=== PATIENT | male | born 1955 | race Caucasian/White ===

== ENCOUNTER 2022-08-22 15:02 | Inpatient (IN) ==
[~2022-08-22 15:02] MED LIST: ACETAMINOPHEN 325 MG TABLET PO PRN; ALUMINUM/MAGNES/SIMETH MAX STR 30 ML UDCUP PO PRN; DOCUSATE SODIUM 100 MG CAPSULE PO PRN; HYDROmorphone 1 MG/1 ML SYRINGE ONE; MAGNESIUM SULF RIDER 2 GM/50 ML PREMIX IV PRN; MAGNESIUM SULF RIDER 4 GM/100 ML PREMIX IV PRN; MIDAZOLAM 2 MG/2 ML VIAL ONE; MORPHINE 2 MG/1 ML SYRINGE IV PRN; NICOTINE 21 MG/24 HR PATCH TRANSDERM PRN; ONDANSETRON 4 MG/2 ML VIAL IV PRN; POTASSIUM CHLORIDE 20 MEQ TABLET PO PRN; PROMETHAZINE 25 MG TABLET PO PRN; ZALEPLON 5 MG CAPSULE PO PRN; diphenhydrAMINE CAP 25 MG CAPSULE PO PRN; guaiFENesin/DM ER 600-30 MG TABLET PO PRN; hydrALAZINE 20 MG/1 ML VIAL IV PRN
[2022-08-22] MEDS ORDERED: NITROGLYCERIN DRIP 50 MG/250 ML BOTTLE IV ONE (15:16)
[2022-08-22] MEDS ORDERED: HEPARIN 5,000 UNIT/1 ML VIAL ONE (15:19)
[2022-08-22] MEDS ORDERED: TIROFIBAN 5,000 MCG/100 ML PREMIX IV ONE (15:20)
[2022-08-22] MEDS ORDERED: LABETALOL 20 MG/4 ML SYRINGE IV ONE (15:44)
[2022-08-22] MEDS ORDERED: HYDROmorphone 1 MG/1 ML SYRINGE ONE (15:46)
[2022-08-22] MEDS ORDERED: NITROGLYCERIN SL 0.4 MG TABLET SL PRN (16:31)
[2022-08-22 17:20] LABS: Basophils % 0.3 % (0.0-0.8); Eosinophils % 0.2 % (0.00-10.9); Hematocrit 47.6 VOL% (42.0-52.0); Hemoglobin 15.4 GM/DL (14.0-18.0); Immature Granulocytes % 0.5 %; Immature Granulocytes Absolute 0.06 #; Lymphocytes # 1.5 10*3/uL (1.4-4.0); Lymphocytes % 10.9 % (21.2-54.2); Mean Corpuscular HGB Conc 32.4 GM/DL (32-36); Mean Corpuscular Volume 86.5 FL (87-102); Mean Platelet Volume 9.7 FL (9.6-12.0); Monocytes # 0.5 10*3/uL (0.11-0.8); Monocytes % 3.5 % (1.7-12.7); Neutrophils % 84.6 % (38.7-73.9); Platelet Count 335 T/CUMM (130-400); Red Cell Distribution Width 14.1 % (9.3-17.3); White Blood Count 13.3 T/CUMM (4-12)
[2022-08-22] MEDS: carvediloL 6.25 MG TABLET PO SCH (17:35)
[2022-08-22 17:38] LABS: Alanine Aminotransferase 105 U/L (16-61); Albumin 3.1 G/DL (3.4-5.0); Alkaline Phosphatase 96 U/L (45-117); Aspartate Amino Transferase 842 U/L (0-37); Bilirubin,Total < 0.39 MG/DL (0.20-1.00); Blood Urea Nitrogen 15 MG/DL (7-18); Calcium 8.9 MG/DL (8.5-10.1); Carbon Dioxide 25 MMOL/L (21-32); Chloride 109 MMOL/L (98-107); Glucose 142 MG/DL (74-106); Osmolality,Calculated 277.7 MOS/KG (273-304); Potassium 4.5 MMOL/L (3.5-5.1); Sodium 138 MMOL/L (136-145); Total Protein 7.3 G/DL (6.4-8.2)
[2022-08-22 18:21] LABS: CKMB % 12.89 %
[2022-08-22 18:23] LABS: High Sensitive Troponin I* > 125000 ng/L (0-78)
[2022-08-22] MEDS: TICAGRELOR 90 MG TABLET PO SCH (20:22)
[2022-08-22] MEDS: ROSUVASTATIN 20 MG TABLET PO SCH (20:22)
[2022-08-22] MEDS ORDERED: METOPROLOL TARTRATE 25 MG TABLET PO SCH (21:00)
[2022-08-22 21:04] LABS: CKMB % 15.21 %
[2022-08-22 21:12] LABS: High Sensitive Troponin I* > 125000 ng/L (0-78)
[2022-08-23 00:07] LABS: CKMB % 16.62 %; High Sensitive Troponin I* > 125000 ng/L (0-78)
[2022-08-23 05:01] LABS: Basophils % 0.2 % (0.0-0.8); Eosinophils # 0.3 10*3/uL (0.0-0.87); Eosinophils % 1.9 % (0.00-10.9); Hematocrit 45.3 VOL% (42.0-52.0); Hemoglobin 15.2 GM/DL (14.0-18.0); Immature Granulocytes % 0.4 %; Immature Granulocytes Absolute 0.05 #; Lymphocytes # 1.7 10*3/uL (1.4-4.0); Lymphocytes % 12.3 % (21.2-54.2); Mean Corpuscular HGB Conc 33.6 GM/DL (32-36); Mean Corpuscular Volume 86.3 FL (87-102); Monocytes # 0.7 10*3/uL (0.11-0.8); Monocytes % 5.3 % (1.7-12.7); Neutrophils % 79.9 % (38.7-73.9); Platelet Count 335 T/CUMM (130-400); Red Blood Count 5.25 MC/CUMM (3.8-5.5); Red Cell Distribution Width 14.2 % (9.3-17.3); White Blood Count 13.9 T/CUMM (4-12)
[2022-08-23 05:17] LABS: Albumin 2.9 G/DL (3.4-5.0); Bilirubin,Total 0.5 MG/DL (0.20-1.00); Osmolality,Calculated 278.7 MOS/KG (273-304); Potassium 3.8 MMOL/L (3.5-5.1); Risk Ratio 5.47; Thyroid Stimulating Hormone 2.36 uIU/ml (0.358-3.74); Total Protein 6.9 G/DL (6.4-8.2)
[2022-08-23 08:17] LABS: High Sensitive Troponin I* > 125000 ng/L (0-78)
[2022-08-23] MEDS ORDERED: amLODIPine 10 MG TABLET PO SCH (09:00)
[2022-08-23] MEDS: carvediloL 6.25 MG TABLET PO SCH ×2 (09:45→17:53)
[2022-08-23] MEDS: TICAGRELOR 90 MG TABLET PO SCH ×2 (09:45→20:59)
[2022-08-23] MEDS: PANTOPRAZOLE 40 MG TABLET PO SCH (09:45)
[2022-08-23] MEDS: ASPIRIN EC 81 MG TABLET PO SCH (09:45)
[2022-08-23] MEDS: SACUBITRIL/VALSARTAN 49-51 MG TABLET PO SCH (20:59)
[2022-08-23] MEDS: ROSUVASTATIN 20 MG TABLET PO SCH (21:00)
[2022-08-24 06:48] LABS: Basophils % 0.2 % (0.0-0.8); Eosinophils # 0.5 10*3/uL (0.0-0.87); Eosinophils % 4.3 % (0.00-10.9); Hematocrit 46.2 VOL% (42.0-52.0); Hemoglobin 14.9 GM/DL (14.0-18.0); Immature Granulocytes % 0.4 %; Immature Granulocytes Absolute 0.05 #; Lymphocytes # 1.8 10*3/uL (1.4-4.0); Lymphocytes % 14.3 % (21.2-54.2); Mean Corpuscular HGB Conc 32.3 GM/DL (32-36); Mean Corpuscular Volume 86.2 FL (87-102); Monocytes # 0.8 10*3/uL (0.11-0.8); Monocytes % 6.4 % (1.7-12.7); Neutrophils % 74.4 % (38.7-73.9); Platelet Count 282 T/CUMM (130-400); Red Blood Count 5.36 MC/CUMM (3.8-5.5); Red Cell Distribution Width 14.3 % (9.3-17.3); White Blood Count 12.5 T/CUMM (4-12)
[2022-08-24 07:19] LABS: Bilirubin,Total 0.5 MG/DL (0.20-1.00); Calcium 8.9 MG/DL (8.5-10.1); Osmolality,Calculated 277.7 MOS/KG (273-304); Potassium 3.7 MMOL/L (3.5-5.1); Total Protein 7.1 G/DL (6.4-8.2)
[2022-08-24 07:33] LABS: CKMB % 5.5 %; High Sensitive Troponin I* 71926.4 ng/L (0-78)
[2022-08-24] MEDS: SACUBITRIL/VALSARTAN 49-51 MG TABLET PO SCH (08:27)
[2022-08-24] MEDS: carvediloL 6.25 MG TABLET PO SCH (08:27)
[2022-08-24] MEDS: PANTOPRAZOLE 40 MG TABLET PO SCH (08:27)
[2022-08-24] MEDS: ASPIRIN EC 81 MG TABLET PO SCH (08:28)
[2022-08-24] MEDS: TICAGRELOR 90 MG TABLET PO SCH (08:28)
[2022-08-24 12:02] VITALS: BP 109/92
== END 2022-08-24 16:28 | disposition home or self-care (01) | DRG 247 ==
LOC: N.CVR → N.ICU 15:51 → N.TELEN 08-23 17:42
PROVIDERS: ADMIT Internal Medicine Cardiovascular Disease; ATTEND Internal Medicine Cardiovascular Disease

== ENCOUNTER 2022-11-03 20:01 | Inpatient (IN) ==
[2022-11-03] MEDS ORDERED: DILTIAZEM 100 MG VIAL.ADD IV ONE ×2 (20:19→20:28)
[2022-11-03] MEDS ORDERED: ASPIRIN 325 MG TABLET ONE (20:27)
[2022-11-03] MEDS ORDERED: ASPIRIN CHEW 81 MG TABLET PO STA (20:27)
[2022-11-03] MEDS ORDERED: DILTIAZEM INJ 100 MG in SODIUM CHLORIDE 0.9% 100 ML IV SCH (20:30)
[2022-11-03] MEDS ORDERED: HYDROmorphone 1 MG/1 ML SYRINGE ONE (20:34)
[2022-11-03] MEDS ORDERED: MIDAZOLAM 2 MG/2 ML VIAL ONE (20:34)
[2022-11-03] MEDS ORDERED: HEPARIN/NACL 0.9% 2 UNITS/ML 2,000 UNIT/1,000 ML BAG IV ONE (20:34)
[2022-11-03 20:35] LABS: Basophils % 0.1 % (0.0-0.8); Eosinophils # 0.8 10*3/uL (0.0-0.87); Eosinophils % 6.3 % (0.00-10.9); Hemoglobin 14.3 GM/DL (14.0-18.0); Immature Granulocytes % 0.3 %; Immature Granulocytes Absolute 0.04 #; Lymphocytes # 1.2 10*3/uL (1.4-4.0); Lymphocytes % 9.8 % (21.2-54.2); Mean Corpuscular HGB Conc 31.1 GM/DL (32-36); Mean Corpuscular Volume 89.5 FL (87-102); Monocytes # 0.4 10*3/uL (0.11-0.8); Monocytes % 2.8 % (1.7-12.7); Neutrophils % 80.7 % (38.7-73.9); Platelet Count 275 T/CUMM (130-400); Red Blood Count 5.14 MC/CUMM (3.8-5.5); Red Cell Distribution Width 14.3 % (9.3-17.3); White Blood Count 12.3 T/CUMM (4-12)
[2022-11-03 20:52] LABS: Albumin 3.2 G/DL (3.4-5.0); Bilirubin,Total 0.6 MG/DL (0.20-1.00); Calcium 8.7 MG/DL (8.5-10.1); Osmolality,Calculated 286.1 MOS/KG (273-304); Potassium 4.7 MMOL/L (3.5-5.1); Total Protein 6.5 G/DL (6.4-8.2)
[2022-11-03 20:56] LABS: PT Patient Result 11.2 SECS (10.1-12.1); Partial Thromboplastin Time 30.4 SECS (23.7-32.9)
[2022-11-03] MEDS ORDERED: AMIODARONE 150 MG/3 ML VIAL ONE ×3 (21:26→21:47)
[2022-11-03] MEDS ORDERED: diphenhydrAMINE 50 MG/1 ML VIAL ONE (21:26)
[2022-11-03] MEDS ORDERED: NITROGLYCERIN SL 0.4 MG TABLET SL PRN (21:48)
[2022-11-03] MEDS ORDERED: AMIODARONE INJ 450 MG in DEXTROSE 5% 241 ML IV SCH (22:00)
[2022-11-03] MEDS ORDERED: SODIUM CHLORIDE 0.9% 1,000 ML IV SCH (22:00)
[2022-11-04 06:08] LABS: Calcium 8.5 MG/DL (8.5-10.1); Osmolality,Calculated 278.5 MOS/KG (273-304); Potassium 4.1 MMOL/L (3.5-5.1)
[2022-11-04] MEDS: PRASUGREL 10 MG TABLET PO SCH (09:13)
[2022-11-04] MEDS: ASPIRIN EC 81 MG TABLET PO SCH (09:14)
[2022-11-04] MEDS: carvediloL 12.5 MG TABLET PO SCH ×2 (09:14→18:02)
[2022-11-04] MEDS: SACUBITRIL/VALSARTAN 49-51 MG TABLET PO SCH ×2 (09:14→22:22)
[2022-11-04] MEDS: FUROSEMIDE 40 MG/4 ML VIAL IV SCH (10:19)
[2022-11-04] MEDS: SPIRONOLACTONE 25 MG TABLET PO SCH (10:21)
[2022-11-04] MEDS ORDERED: AMIODARONE INJ 450 MG in DEXTROSE 5% 241 ML IV SCH (10:30)
[2022-11-04] MEDS: AMIODARONE INJ 450 MG in DEXTROSE 5% 241 ML IV SCH ×2 (16:30→18:53)
[2022-11-04] MEDS ORDERED: FUROSEMIDE 20 MG/2 ML VIAL IV ONE (18:58)
[2022-11-04] MEDS ORDERED: ALBUTEROL 0.63 MG/3 ML NEB RESP TX PRN (19:06)
[2022-11-04] MEDS ORDERED: FUROSEMIDE 40 MG/4 ML VIAL IV ONE (19:22)
[2022-11-04] MEDS ORDERED: MORPHINE 2 MG/1 ML SYRINGE ONE (19:24)
[2022-11-04] MEDS ORDERED: MORPHINE 2 MG/1 ML SYRINGE IV ONE (19:26)
[2022-11-04] MEDS ORDERED: ETOMIDATE 20 MG/10 ML VIAL IV ONE ×2 (19:40→19:43)
[2022-11-04] MEDS ORDERED: VECURONIUM 10 MG VIAL IV ONE ×2 (19:40→19:44)
[2022-11-04] MEDS ORDERED: MIDAZOLAM 10 MG/2 ML VIAL ONE ×2 (19:44→22:41)
[2022-11-04] MEDS ORDERED: MIDAZOLAM 2 MG/2 ML VIAL IV ONE ×2 (19:46→22:37)
[2022-11-04 20:29] LABS: Basophils % 0.2 % (0.0-0.8); Eosinophils # 0.5 10*3/uL (0.0-0.87); Eosinophils % 4.2 % (0.00-10.9); Hematocrit 45.1 VOL% (42.0-52.0); Hemoglobin 14.2 GM/DL (14.0-18.0); Immature Granulocytes % 0.3 %; Immature Granulocytes Absolute 0.04 #; Lymphocytes # 1.8 10*3/uL (1.4-4.0); Lymphocytes % 13.9 % (21.2-54.2); Mean Corpuscular HGB Conc 31.5 GM/DL (32-36); Mean Corpuscular Volume 89.1 FL (87-102); Mean Platelet Volume 11.1 FL (9.6-12.0); Monocytes # 0.5 10*3/uL (0.11-0.8); Neutrophils % 77.4 % (38.7-73.9); Platelet Count 306 T/CUMM (130-400); Red Blood Count 5.06 MC/CUMM (3.8-5.5); Red Cell Distribution Width 14.1 % (9.3-17.3); White Blood Count 12.6 T/CUMM (4-12)
[2022-11-04 20:51] LABS: ABG Base Excess -4.5 MMOL/L (-2.5-2.5); ABG HCO3 20.8 MMOL/L (20-26); ABG Oxygen Saturation 99.2 % (95-100); ABG TCO2 21.7 MMOL/L (23-27)
[2022-11-04 20:53] LABS: Albumin 3.4 G/DL (3.4-5.0); Bilirubin,Total 0.6 MG/DL (0.20-1.00); CKMB % 5.2 %; Calcium 8.5 MG/DL (8.5-10.1); Osmolality,Calculated 288.5 MOS/KG (273-304); Potassium 4.5 MMOL/L (3.5-5.1); Total Protein 7.7 G/DL (6.4-8.2)
[2022-11-04 21:00] LABS: High Sensitive Troponin I* 925.5 ng/L (0-78)
[2022-11-04 21:19] LABS: Bacteria,Urine Few /HPF (Few); Hyaline Casts,Urine 1 /LPF (0-3); Mucus,Urine Occasional /LPF (Occasional); RBC,Urine 4 /HPF (0-4)
[2022-11-04 21:20] LABS: Bilirubin,Urine Negative (Negative); Blood, Urine Negative (Negative); Glucose,Urine (UA) Negative (Negative); Ketones,Urine Negative (Negative); Nitrite,Urine Negative (Negative); Protein,Urine 100 mg/dL (Negative); Urine Appearance Clear (Clear); Urine Color Yellow (Yellow); Urine Specific Gravity 1.025 (1.001-1.035); Urine Urobilinogen 0.2 eU/dL (<2.0); Urine pH 5.5 (4.5-8.0)
[2022-11-04] MEDS: ROSUVASTATIN 20 MG TABLET PO SCH (22:22)
[2022-11-04] MEDS ORDERED: MIDAZOLAM DRIP 100 MG/100 ML PREMIX IV ONE (22:41)
[2022-11-04] MEDS: MIDAZOLAM DRIP 100 MG/100 ML PREMIX IV PRN (22:49)
[2022-11-04 23:16] LABS: ABG Base Excess 0.4 MMOL/L (-2.5-2.5); ABG HCO3 24.8 MMOL/L (20-26); ABG Oxygen Saturation 99.3 % (95-100); ABG PCO2 41.4 MM HG (35-48); ABG PH 7.395 (7.35-7.45)
[2022-11-04 23:34] LABS: CKMB % 4.86 %
[2022-11-05 02:48] LABS: Calcium 8.5 MG/DL (8.5-10.1); Osmolality,Calculated 278.7 MOS/KG (273-304); Potassium 4.4 MMOL/L (3.5-5.1)
[2022-11-05 02:52] LABS: CKMB % 4.14 %; High Sensitive Troponin I* 906.3 ng/L (0-78)
[2022-11-05] MEDS: FUROSEMIDE 40 MG/4 ML VIAL IV SCH ×2 (08:52→15:08)
[2022-11-05] MEDS: carvediloL 12.5 MG TABLET PO SCH ×2 (08:52→17:52)
[2022-11-05] MEDS: PRASUGREL 10 MG TABLET PO SCH (08:52)
[2022-11-05] MEDS: ASPIRIN EC 81 MG TABLET PO SCH (08:52)
[2022-11-05] MEDS: SPIRONOLACTONE 25 MG TABLET PO SCH (09:14)
[2022-11-05 09:27] LABS: Bilirubin,Total 0.6 MG/DL (0.20-1.00); Calcium 8.7 MG/DL (8.5-10.1); Osmolality,Calculated 280.5 MOS/KG (273-304); Potassium 3.9 MMOL/L (3.5-5.1); Total Protein 6.8 G/DL (6.4-8.2)
[2022-11-05] MEDS: ENOXAPARIN 40 MG/0.4 ML SYRINGE SUBCUT SCH (09:31)
[2022-11-05] MEDS: SACUBITRIL/VALSARTAN 49-51 MG TABLET PO SCH ×2 (09:31→21:05)
[2022-11-05 09:57] LABS: Arterial Base Excess iSTAT 2 MMOL/L (-2.5-2.5); Arterial Bicarbonate iSTAT 25.5 MMOL/L (20-26); Arterial O2 Saturation iSTAT 99 % (95-100); Arterial PCO2 iSTAT 35 MM HG (35-48); Arterial PO2 iSTAT 126 MM HG (80-95); Arterial Total CO2 iSTAT 27 MMO/L (23-27); Arterial pH iSTAT 7.467 (7.35-7.45)
[2022-11-05 10:05] LABS: Basophils % 0.3 % (0.0-0.8); Eosinophils # 0.4 10*3/uL (0.0-0.87); Eosinophils % 3.7 % (0.00-10.9); Hematocrit 38.3 VOL% (42.0-52.0); Hemoglobin 12.4 GM/DL (14.0-18.0); Immature Granulocytes % 0.5 %; Immature Granulocytes Absolute 0.05 #; Lymphocytes # 1.8 10*3/uL (1.4-4.0); Lymphocytes % 17.3 % (21.2-54.2); Mean Corpuscular HGB Conc 32.4 GM/DL (32-36); Mean Corpuscular Volume 86.5 FL (87-102); Mean Platelet Volume 10.6 FL (9.6-12.0); Monocytes # 0.6 10*3/uL (0.11-0.8); Monocytes % 6.2 % (1.7-12.7); Platelet Count 224 T/CUMM (130-400); Red Blood Count 4.43 MC/CUMM (3.8-5.5); Red Cell Distribution Width 14.3 % (9.3-17.3); White Blood Count 10.1 T/CUMM (4-12)
[2022-11-05] MEDS: MIDAZOLAM DRIP 100 MG/100 ML PREMIX IV PRN ×2 (11:30→21:18)
[2022-11-05] MEDS: AMIODARONE INJ 450 MG in DEXTROSE 5% 241 ML IV SCH (11:30)
[2022-11-05] MEDS: PANTOPRAZOLE 40 MG VIAL IV SCH (17:52)
[2022-11-05] MEDS: ROSUVASTATIN 20 MG TABLET PO SCH (21:05)
[2022-11-06] MEDS: AMIODARONE INJ 450 MG in DEXTROSE 5% 241 ML IV SCH ×2 (02:40→13:38)
[2022-11-06 04:11] LABS: Arterial Base Excess iSTAT 2 MMOL/L (-2.5-2.5); Arterial Bicarbonate iSTAT 25.6 MMOL/L (20-26); Arterial O2 Saturation iSTAT 98 % (95-100); Arterial PCO2 iSTAT 35 MM HG (35-48); Arterial PO2 iSTAT 99 MM HG (80-95); Arterial Total CO2 iSTAT 27 MMO/L (23-27)
[2022-11-06 05:21] LABS: Basophils % 0.3 % (0.0-0.8); Eosinophils # 0.4 10*3/uL (0.0-0.87); Eosinophils % 4.3 % (0.00-10.9); Hematocrit 37.4 VOL% (42.0-52.0); Hemoglobin 12.2 GM/DL (14.0-18.0); Immature Granulocytes % 0.2 %; Immature Granulocytes Absolute 0.02 #; Lymphocytes # 1.7 10*3/uL (1.4-4.0); Lymphocytes % 18.4 % (21.2-54.2); Mean Corpuscular HGB Conc 32.6 GM/DL (32-36); Mean Corpuscular Volume 86.6 FL (87-102); Mean Platelet Volume 10.9 FL (9.6-12.0); Monocytes # 0.7 10*3/uL (0.11-0.8); Neutrophils % 69.8 % (38.7-73.9); Platelet Count 231 T/CUMM (130-400); Red Blood Count 4.32 MC/CUMM (3.8-5.5); Red Cell Distribution Width 14.1 % (9.3-17.3); White Blood Count 9.4 T/CUMM (4-12)
[2022-11-06 05:42] LABS: Albumin 2.7 G/DL (3.4-5.0); Bilirubin,Total 0.7 MG/DL (0.20-1.00); Calcium 8.8 MG/DL (8.5-10.1); Osmolality,Calculated 281.7 MOS/KG (273-304); Potassium 3.7 MMOL/L (3.5-5.1); Total Protein 6.7 G/DL (6.4-8.2)
[2022-11-06] MEDS: MIDAZOLAM DRIP 100 MG/100 ML PREMIX IV PRN ×2 (07:47→17:28)
[2022-11-06] MEDS: ASPIRIN EC 81 MG TABLET PO SCH (09:13)
[2022-11-06] MEDS: carvediloL 12.5 MG TABLET PO SCH ×2 (09:13→16:09)
[2022-11-06] MEDS: PANTOPRAZOLE 40 MG VIAL IV SCH (09:14)
[2022-11-06] MEDS: PRASUGREL 10 MG TABLET PO SCH (09:14)
[2022-11-06] MEDS: FUROSEMIDE 40 MG/4 ML VIAL IV SCH ×2 (09:14→15:49)
[2022-11-06] MEDS: ENOXAPARIN 40 MG/0.4 ML SYRINGE SUBCUT SCH (09:14)
[2022-11-06] MEDS: SPIRONOLACTONE 25 MG TABLET PO SCH (09:33)
[2022-11-06] MEDS: SACUBITRIL/VALSARTAN 49-51 MG TABLET PO SCH ×2 (09:33→20:35)
[2022-11-06] MEDS: ROSUVASTATIN 20 MG TABLET PO SCH (20:35)
[2022-11-06] MEDS: AMIODARONE 200 MG TABLET PO SCH (20:35)
[2022-11-06] MEDS ORDERED: AMIODARONE 200 MG TABLET PO SCH (21:00)
[2022-11-07] MEDS: MIDAZOLAM DRIP 100 MG/100 ML PREMIX IV PRN (01:42)
[2022-11-07 04:27] LABS: Arterial Base Excess iSTAT 3 MMOL/L (-2.5-2.5); Arterial O2 Saturation iSTAT 98 % (95-100); Arterial PCO2 iSTAT 38 MM HG (35-48); Arterial PO2 iSTAT 105 MM HG (80-95); Arterial Total CO2 iSTAT 28 MMO/L (23-27); Arterial pH iSTAT 7.462 (7.35-7.45)
[2022-11-07 05:00] LABS: Basophils % 0.4 % (0.0-0.8); Eosinophils # 0.3 10*3/uL (0.0-0.87); Eosinophils % 3.5 % (0.00-10.9); Hematocrit 39.6 VOL% (42.0-52.0); Immature Granulocytes % 0.3 %; Immature Granulocytes Absolute 0.03 #; Lymphocytes # 1.4 10*3/uL (1.4-4.0); Lymphocytes % 15.4 % (21.2-54.2); Mean Corpuscular HGB Conc 32.8 GM/DL (32-36); Mean Corpuscular Volume 85.5 FL (87-102); Monocytes # 0.9 10*3/uL (0.11-0.8); Monocytes % 9.9 % (1.7-12.7); Neutrophils % 70.5 % (38.7-73.9); Platelet Count 250 T/CUMM (130-400); Red Blood Count 4.63 MC/CUMM (3.8-5.5); Red Cell Distribution Width 14.1 % (9.3-17.3); White Blood Count 9.1 T/CUMM (4-12)
[2022-11-07 05:28] LABS: Calcium 8.8 MG/DL (8.5-10.1); Osmolality,Calculated 281.7 MOS/KG (273-304); Potassium 3.7 MMOL/L (3.5-5.1)
[2022-11-07] MEDS: PANTOPRAZOLE 40 MG VIAL IV SCH (09:34)
[2022-11-07] MEDS: ENOXAPARIN 40 MG/0.4 ML SYRINGE SUBCUT SCH (09:34)
[2022-11-07] MEDS: FUROSEMIDE 40 MG/4 ML VIAL IV SCH ×2 (09:35→16:10)
[2022-11-07] MEDS: PRASUGREL 10 MG TABLET PO SCH (09:36)
[2022-11-07] MEDS: SPIRONOLACTONE 25 MG TABLET PO SCH (09:36)
[2022-11-07] MEDS: ASPIRIN EC 81 MG TABLET PO SCH (09:37)
[2022-11-07] MEDS: SACUBITRIL/VALSARTAN 49-51 MG TABLET PO SCH ×2 (09:37→20:27)
[2022-11-07] MEDS: carvediloL 12.5 MG TABLET PO SCH (09:37)
[2022-11-07] MEDS: AMIODARONE 200 MG TABLET PO SCH ×2 (09:37→20:28)
[2022-11-07 11:45] VITALS: BP 114/76
[2022-11-07] MEDS ORDERED: methylPREDNISolone SOD SUC 125 MG/2 ML VIAL IV ONE (13:00)
[2022-11-07] MEDS ORDERED: RACEPINEPHRINE 0.5 ML NEB RESP TX ONE (13:00)
[2022-11-07] MEDS: carvediloL 3.125 MG TABLET PO SCH (20:28)
[2022-11-07] MEDS: ROSUVASTATIN 20 MG TABLET PO SCH (20:28)
[2022-11-07 21:40] LABS: Arterial Base Excess iSTAT 3 MMOL/L (-2.5-2.5); Arterial Bicarbonate iSTAT 26.4 MMOL/L (20-26); Arterial O2 Saturation iSTAT 97 % (95-100); Arterial PCO2 iSTAT 38 MM HG (35-48); Arterial PO2 iSTAT 82 MM HG (80-95); Arterial Total CO2 iSTAT 28 MMO/L (23-27); Arterial pH iSTAT 7.455 (7.35-7.45)
[2022-11-07] MEDS ORDERED: LORazepam 2 MG/1 ML VIAL IV ONE (21:50)
[2022-11-07] MEDS ORDERED: HALOPERIDOL 5 MG/ML AMP IM ONE (22:43)
[2022-11-07] MEDS: NICOTINE 14 MG/24 HR PATCH TRANSDERM SCH (23:05)
[2022-11-08] MEDS ORDERED: LORazepam 2 MG/1 ML VIAL IV ONE (00:30)
[2022-11-08 03:35] LABS: Arterial Base Excess iSTAT 1 MMOL/L (-2.5-2.5); Arterial Bicarbonate iSTAT 24.5 MMOL/L (20-26); Arterial O2 Saturation iSTAT 93 % (95-100); Arterial PCO2 iSTAT 34 MM HG (35-48); Arterial PO2 iSTAT 62 MM HG (80-95); Arterial Total CO2 iSTAT 26 MMO/L (23-27); Arterial pH iSTAT 7.467 (7.35-7.45)
[2022-11-08 06:00] LABS: Basophils % 0.1 % (0.0-0.8); Hematocrit 46.7 VOL% (42.0-52.0); Hemoglobin 15.3 GM/DL (14.0-18.0); Immature Granulocytes % 0.5 %; Immature Granulocytes Absolute 0.06 #; Mean Corpuscular HGB Conc 32.8 GM/DL (32-36); Mean Corpuscular Volume 83.4 FL (87-102); Mean Platelet Volume 10.8 FL (9.6-12.0); Monocytes # 0.4 10*3/uL (0.11-0.8); Monocytes % 3.8 % (1.7-12.7); Neutrophils % 86.6 % (38.7-73.9); Platelet Count 343 T/CUMM (130-400); Red Cell Distribution Width 13.6 % (9.3-17.3); White Blood Count 11.5 T/CUMM (4-12)
[2022-11-08 06:28] LABS: Calcium 9.7 MG/DL (8.5-10.1); Osmolality,Calculated 293.3 MOS/KG (273-304); Potassium 3.5 MMOL/L (3.5-5.1)
[2022-11-08 08:10] LABS: Arterial Bicarbonate iSTAT 29.1 MMOL/L (20-26); Arterial pH iSTAT 7.427 (7.35-7.45)
[2022-11-08] MEDS: FUROSEMIDE 40 MG/4 ML VIAL IV SCH ×2 (09:59→16:36)
[2022-11-08] MEDS: PRASUGREL 10 MG TABLET PO SCH (10:00)
[2022-11-08] MEDS: AMIODARONE 200 MG TABLET PO SCH (10:00)
[2022-11-08] MEDS: NICOTINE 14 MG/24 HR PATCH TRANSDERM SCH (10:00)
[2022-11-08] MEDS: SACUBITRIL/VALSARTAN 49-51 MG TABLET PO SCH ×2 (10:01→21:39)
[2022-11-08] MEDS: ASPIRIN EC 81 MG TABLET PO SCH (10:01)
[2022-11-08] MEDS: carvediloL 3.125 MG TABLET PO SCH ×2 (10:01→21:47)
[2022-11-08] MEDS: SPIRONOLACTONE 25 MG TABLET PO SCH (10:01)
[2022-11-08] MEDS: ENOXAPARIN 40 MG/0.4 ML SYRINGE SUBCUT SCH (10:02)
[2022-11-08] MEDS: PANTOPRAZOLE 40 MG VIAL IV SCH (10:02)
[2022-11-08] MEDS ORDERED: AMIODARONE 450 MG/9 ML VIAL IV ONE (11:26)
[2022-11-08] MEDS ORDERED: AMIODARONE 150 MG/3 ML VIAL ONE (11:27)
[2022-11-08] MEDS ORDERED: AMIODARONE INJ 150 MG in DEXTROSE 5% 100 ML IV ONE (11:29)
[2022-11-08] MEDS ORDERED: AMIODARONE INJ 450 MG in DEXTROSE 5% 241 ML IV SCH (11:40)
[2022-11-08] MEDS ORDERED: PHENYLEPHRINE DRIP 40 MG/250 ML PREMIX IV ONE (15:24)
[2022-11-08] MEDS: LORazepam 1 MG TABLET PO SCH (16:36)
[2022-11-08] MEDS: PHENYLEPHRINE DRIP 40 MG/250 ML PREMIX IV PRN (18:20)
[2022-11-08] MEDS ORDERED: dexmedeTOMIDine DRIP 400 MCG/100 ML PREMIX IV PRN (18:53)
[2022-11-08] MEDS: ROSUVASTATIN 20 MG TABLET PO SCH (21:39)
[2022-11-08] MEDS: AMIODARONE INJ 450 MG in DEXTROSE 5% 241 ML IV SCH (21:45)
[2022-11-09] MEDS: LORazepam 1 MG TABLET PO SCH ×3 (00:52→18:18)
[2022-11-09] MEDS: PHENYLEPHRINE DRIP 40 MG/250 ML PREMIX IV PRN (02:27)
[2022-11-09 04:01] LABS: Basophils % 0.2 % (0.0-0.8); Eosinophils % 0.2 % (0.00-10.9); Hematocrit 44.9 VOL% (42.0-52.0); Hemoglobin 14.5 GM/DL (14.0-18.0); Immature Granulocytes % 0.5 %; Immature Granulocytes Absolute 0.08 #; Lymphocytes # 2.5 10*3/uL (1.4-4.0); Lymphocytes % 14.8 % (21.2-54.2); Mean Corpuscular HGB Conc 32.3 GM/DL (32-36); Mean Corpuscular Volume 85.9 FL (87-102); Mean Platelet Volume 10.4 FL (9.6-12.0); Monocytes # 1.2 10*3/uL (0.11-0.8); Monocytes % 7.1 % (1.7-12.7); Neutrophils % 77.2 % (38.7-73.9); Platelet Count 392 T/CUMM (130-400); Red Blood Count 5.23 MC/CUMM (3.8-5.5); Red Cell Distribution Width 13.9 % (9.3-17.3); White Blood Count 16.6 T/CUMM (4-12)
[2022-11-09 04:16] LABS: Calcium 8.8 MG/DL (8.5-10.1); Osmolality,Calculated 295.3 MOS/KG (273-304); Potassium 3.6 MMOL/L (3.5-5.1)
[2022-11-09 04:22] LABS: Arterial Base Excess iSTAT 5 MMOL/L (-2.5-2.5); Arterial Bicarbonate iSTAT 30.5 MMOL/L (20-26); Arterial O2 Saturation iSTAT 98 % (95-100); Arterial PCO2 iSTAT 46 MM HG (35-48); Arterial PO2 iSTAT 109 MM HG (80-95); Arterial Total CO2 iSTAT 32 MMO/L (23-27)
[2022-11-09] MEDS: SACUBITRIL/VALSARTAN 49-51 MG TABLET PO SCH ×2 (08:43→20:28)
[2022-11-09] MEDS: carvediloL 3.125 MG TABLET PO SCH ×2 (08:43→20:28)
[2022-11-09] MEDS: PRASUGREL 10 MG TABLET PO SCH (08:44)
[2022-11-09] MEDS: SPIRONOLACTONE 25 MG TABLET PO SCH (08:44)
[2022-11-09] MEDS: ASPIRIN EC 81 MG TABLET PO SCH (08:44)
[2022-11-09] MEDS: NICOTINE 14 MG/24 HR PATCH TRANSDERM SCH (08:44)
[2022-11-09] MEDS: PANTOPRAZOLE 40 MG VIAL IV SCH (08:45)
[2022-11-09] MEDS: FUROSEMIDE 40 MG/4 ML VIAL IV SCH (08:50)
[2022-11-09] MEDS: ENOXAPARIN 40 MG/0.4 ML SYRINGE SUBCUT SCH (10:49)
[2022-11-09] MEDS: GENTAMICIN 0.3% OPH SOLN 5 ML BOTTLE BOTH EYES SCH ×2 (15:35→20:28)
[2022-11-09] MEDS: AMIODARONE 200 MG TABLET PO SCH ×2 (16:28→20:28)
[2022-11-09] MEDS ORDERED: LORazepam 1 MG TABLET PO PRN (18:19)
[2022-11-09] MEDS: PHENOL 1.4% THROAT SPRAY 177 ML BOTTLE PO PRN ×2 (19:25→22:34)
[2022-11-09] MEDS: ROSUVASTATIN 20 MG TABLET PO SCH (20:28)
[2022-11-10] MEDS: PHENOL 1.4% THROAT SPRAY 177 ML BOTTLE PO PRN (03:08)
[2022-11-10 05:03] LABS: Basophils % 0.3 % (0.0-0.8); Eosinophils # 0.3 10*3/uL (0.0-0.87); Eosinophils % 3.2 % (0.00-10.9); Hemoglobin 14.6 GM/DL (14.0-18.0); Immature Granulocytes % 0.2 %; Immature Granulocytes Absolute 0.02 #; Lymphocytes # 2.5 10*3/uL (1.4-4.0); Lymphocytes % 24.4 % (21.2-54.2); Mean Corpuscular HGB Conc 32.4 GM/DL (32-36); Mean Corpuscular Volume 86.5 FL (87-102); Mean Platelet Volume 10.7 FL (9.6-12.0); Monocytes # 0.8 10*3/uL (0.11-0.8); Monocytes % 8.1 % (1.7-12.7); Neutrophils % 63.8 % (38.7-73.9); Platelet Count 313 T/CUMM (130-400); Red Cell Distribution Width 13.8 % (9.3-17.3); White Blood Count 10.1 T/CUMM (4-12)
[2022-11-10 05:21] LABS: Calcium 8.9 MG/DL (8.5-10.1); Osmolality,Calculated 287.5 MOS/KG (273-304); Potassium 3.5 MMOL/L (3.5-5.1)
[2022-11-10] MEDS ORDERED: FUROSEMIDE 40 MG TABLET PO SCH (09:00)
[2022-11-10] MEDS: PRASUGREL 10 MG TABLET PO SCH (09:45)
[2022-11-10] MEDS: SACUBITRIL/VALSARTAN 49-51 MG TABLET PO SCH (09:46)
[2022-11-10] MEDS: SPIRONOLACTONE 25 MG TABLET PO SCH (09:47)
[2022-11-10] MEDS: NICOTINE 14 MG/24 HR PATCH TRANSDERM SCH (09:47)
[2022-11-10] MEDS: ASPIRIN EC 81 MG TABLET PO SCH (09:47)
[2022-11-10] MEDS: AMIODARONE 200 MG TABLET PO SCH (09:47)
[2022-11-10] MEDS: carvediloL 3.125 MG TABLET PO SCH (09:47)
[2022-11-10] MEDS: ENOXAPARIN 40 MG/0.4 ML SYRINGE SUBCUT SCH (09:48)
[2022-11-10] MEDS: GENTAMICIN 0.3% OPH SOLN 5 ML BOTTLE BOTH EYES SCH (09:48)
[2022-11-10] MEDS: AMIODARONE INJ 450 MG in DEXTROSE 5% 241 ML IV SCH (10:10)
[2022-11-10] MEDS: PANTOPRAZOLE 40 MG VIAL IV SCH (10:11)
[2022-11-10] MEDS ORDERED: ASCORBIC ACID 500 MG TABLET PO SCH (21:00)
[2022-11-11] MEDS ORDERED: PANTOPRAZOLE 40 MG TABLET PO SCH (06:30)
[2022-11-11] MEDS ORDERED: DAPAGLIFLOZIN 10 MG TABLET PO SCH (09:00)
== END 2022-11-10 13:45 | disposition home health service (06) | DRG 280 ==
LOC: N.ED 20:01 → N.EDINP 20:48 → SUATTDRO 21:42 → N.EDINP 21:42 → N.TELEN 22:12 → N.ICU 11-04 19:57
PROVIDERS: ADMIT Internal Medicine Cardiovascular Disease; ATTEND Internal Medicine Cardiovascular Disease
PROC: CLCCHCL (ICD-10-PCS; 2022-11-03 21:15)